=== PATIENT | female | born 1995 | race Caucasian/White ===

== ENCOUNTER 2017-03-18 18:18 | Emergency (ER) | payer OTHER ==
[~2017-03-18] VITALS: Ht 154.9 cm; Wt 54.0 kg
[2017-03-18 18:20] VITALS: BP 101/68; PULSE 75; TEMP 36.8; O2SAT 98; Ht 154.9 cm; Wt 54.0 kg
--- NOTE | 2017-03-18 21:28 | EMERGENCY ROOM VISIT NOTE ---
History First contact with patient: 18:28 Chief Complaint: BACK PAIN Stated Complaint: SHARP BACK PAIN History of Present Illness The patient is a 21 year old white female who presents to the Emergency Room with complaints of right low back pain that became acutely worse today. She states she has a long history of low back pain. 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 She had lumbar-type pain in her paraspinal muscles at that time. When she quit that activity, the lumbar pain resolved. She has had persisting pain in the right SI joint since then. No treatment. No further evaluation. She is unsure if there is any leg length discrepancy. No trauma to cause her current discomfort. She denies any significant physical activity over the last 2 days that may have started it. It is nonradiating. No loss of bowel or bladder function. No other treatment. No symptoms on the left. Review of Systems REVIEW OF SYSTEM: HEENT: No dizziness, visual problems, hearing loss, or tinnitus. There is no difficulty swallowing and no oral lesions are present. LYMPH: No adenopathy. PULMONARY: No cough, shortness of breath, sputum production or hemoptysis. CARDIOVASCULAR: No chest pain, palpitations, shortness of breath or peripheral edema. GASTROINTESTINAL: No diarrhea, constipation, nausea, vomiting, or abdominal pain. GENITOURINARY: No dysuria, frequency, urgency or nocturia. NEUROLOGIC: No weakness, muscle tenderness, epilepsy or history of neurological problems. MUSCULOSKELETAL: No history of joint tenderness/swelling. No history of arthritis or arthralgias. SKIN: No rashes or lesions. PSYCHIATRIC: No history of depression or mental illness. ENDOCRINE: No history of diabetes, thyroid disorders, or abnormal hair growth. Past Medical/Surgical History Medical history: Significant for history of bronchitis, toxoplasmosis, IgA deficiency. Previous surgeries: Tonsillectomy with adenoidectomy. Family History Significant for diabetes. Parents are living. Social History Smoking Status: Never Smoker Smokeless Tobacco Use: No Alcohol Use: occasionally Drug Use: none Marital Status: single Housing Status: lives alone Occupation Status: unemployed, [employer] Current/Historical Medications No Active Prescriptions or Reported Meds Physical Exam Vital Signs Date Time Temp Pulse Resp B/P (MAP) Pulse Ox O2 Delivery O2 Flow Rate FiO2 03/18/17 18:20 36.8 75 18 101/68 98 Room Air Pain Rating (0-10): 5.0 Physical Exam Gen.: Well-developed, well-nourished, young white female, in no acute distress. Sitting on a bed. Alert and oriented. Skin:Warm and dry with good turgor. No rashes or lesions. No ecchymosis or erythema. The patient is not diaphoretic. No abrasions. Musculoskeletal: Low back evaluation reveals no obvious asymmetry or deformity. No pain with palpation over the vertebral bodies or discs spaces. She does have discomfort with palpation over the right SI joint. No pain with palpation over the paraspinal musculature. Good range of motion of her back. No pain with palpation over the buttock, performs, greater trochanter, or left SI joint. Supple motion of the right hip. She has a leg length discrepancy of approximately 6 mm with the right leg being short. Neurologic: Gross sensation is intact across both lower extremities by soft touch. Medical Decision & Procedures ED Course Patient was educated regarding today's findings. Conservative care measures were discussed. Etiology regarding her symptoms was discussed. She may follow- up with [facility] for a physical therapy referral. She may also try lpn care manager if desired. Tylenol and Motrin every 6 hours as needed for discomfort. Apply ice to the low back or warm moist compresses as desired for pain relief. Gentle stretching daily. Avoid any heavy lifting or vigorous twisting until symptoms have resolved. She may elect to obtain a heel lift to put in her right shoe even out her leg length. She understands that this may be a cause or effect in regard to her back pain. Return to the ED for any acute changes. Medical Decision Possibility of scoliosis, apparent leg length discrepancy, actual leg length discrepancy, disc pathology, lumbar strain, ureterolithiasis, and nephritis were considered among others. Medication Reconcilliation Current Medication List: was personally reviewed by me Blood Pressure Screening Patient's blood pressure: Normal blood pressure Impression Primary Impression: Leg length discrepancy Additional Impression: Sacroiliac joint dysfunction of right side Departure Information Dispostion Home / Self-Care Condition GOOD Prescriptions No Active Prescriptions or Reported Meds Referrals No Doctor, Assigned Forms HOME CARE DOCUMENTATION FORM, MOTRIN USE, TYLENOL USE, IMPORTANT VISIT INFORMATION Patient Instructions Lumbar Rotation, My [employer] Additional Instructions Place a gel heel cup in your right shoe Gentle stretching daily Ice or moist heat to the low back several times per day as needed for pain relief Tylenol and Motrin every 6 hours as needed for discomfort Follow-up with S on Monday for a physical therapy referral cardiac care unit nurse may also be of benefit Problem Qualifiers
== END 2017-03-18 19:04 | disposition home or self-care (01) ==
LOC: C.EDB 18:19 → C.EDD 19:04
DX: M53.3 Sacrococcygeal disorders, not elsewhere classified (principal); M21.70 Unequal limb length (acquired), unspecified site